=== PATIENT | male | born 2000 | race African-American/Black ===

== ENCOUNTER 2022-02-18 08:01 | Emergency (ER) | payer OTHER ==
[~2022-02-18] VITALS: Ht 177.8 cm; Wt 73.0 kg
[2022-02-18 09:33] LABS: BASOPHILS % 0.5 % (0.0-2.0); EOSINOPHILS % 2.7 % (0.0-5.0); HEMATOCRIT. 44.4 % (42.0-52.0); HEMOGLOBIN. 13.7 g/dL (14.0-18.0); LYMPHOCYTES % 23.2 % (20.0-50.0); MEAN CORPUSCULAR HEMOGLOBIN 23.2 pg (28.0-32.0); MEAN CORPUSCULAR VOLUME 75.1 fL (80.0-94.0); MEAN PLATELET VOLUME 8.4 fl (7.4-10.4); MONOCYTES % 6.9 % (2.0-8.0); NEUTROPHILS % 66.7 % (40.0-76.0); PLATELET 164 x1000/uL (130-400); RED BLOOD CELL COUNT 5.92 mill/uL (4.7-6.1); RED CELL DISTRIBUTION WIDTH 14.6 % (11.6-14.6)
[2022-02-18 09:46] LABS: CHLORIDE 111 mEq/L (98-107)
[2022-02-18 09:47] LABS: CLARITY URINE CLEAR (CLEAR); COLOR URINE YELLOW (YELLOW); KETONES URINE NEGATIVE (NEGATIVE); LEUKOCYTE ESTERASE URINE NEGATIVE (NEGATIVE); NITRITE URINE NEGATIVE (NEGATIVE); OCCULT BLOOD URINE NEGATIVE (NEGATIVE); PH URINE 7.5 (4.5-8.0); PROTEIN URINE NEGATIVE (NEGATIVE); SPECIFIC GRAVITY URINE 1.016 (1.005-1.030); UROBILINOGEN URINE 0.2 E.U./dL (0.2-1.0)
[2022-02-18 09:48] LABS: ETHANOL BLOOD < 10 mg/dL
[2022-02-18 10:00] LABS: METHADONE URINE SCREEN NEGATIVE (NEGATIVE)
[2022-02-18 10:01] LABS: *AMPHETAMINES SCREEN URINE NEGATIVE (NEGATIVE); *BARBITURATES SCREEN URINE NEGATIVE (NEGATIVE); *BENZODIAZEPINES SCREEN URINE NEGATIVE (NEGATIVE); *COCAINE SCREEN URINE NEGATIVE (NEGATIVE); CANNABINOID URINE SCREEN PRESUMTIVE POSITIVE (NEGATIVE); OPIATES URINE SCREEN NEGATIVE (NEGATIVE); PHENCYCLIDINE URINE SCREEN NEGATIVE (NEGATIVE)
[2022-02-18] MEDS ORDERED: LEVETIRACETAM 1000MG PREMIX 100 ML IV NR (10:44)
[2022-02-18] MEDS ORDERED: LORAZEPAM 2MG/ML CPJ IV NR (10:45)
[2022-02-18] MEDS ORDERED: LEVETIRACETAM 1000MG PREMIX 100 ML IV ONE (10:45)
[2022-02-18] MEDS ORDERED: LORAZEPAM 2MG/ML CPJ IV ONE (10:45)
[2022-02-18 13:35] VITALS: BP 113/44
== END 2022-02-18 15:02 | disposition short-term general hospital (02) ==
LOC: ER 08:01
DX: G40.909 Epilepsy, unspecified, not intractable, without status epilepticus (principal); J45.909 Unspecified asthma, uncomplicated; F12.10 Cannabis abuse, uncomplicated
CPT/HCPCS: 36415; 70450; 71045; 80053; 80305; 80320; 81003; 82962; 85025; 93005; 96365; 96375; 99285; J1953; J2060; G0480

== ENCOUNTER 2022-02-24 10:07 | Emergency (ER) | payer OTHER ==
[~2022-02-24] VITALS: Ht 175.3 cm; Wt 68.0 kg
[2022-02-24] MEDS ORDERED: LEVETIRACETAM 1000MG PREMIX 100 ML IV ONE (11:00)
[2022-02-24 11:29] LABS: BASOPHILS % 0.4 % (0.0-2.0); EOSINOPHILS % 0.5 % (0.0-5.0); HEMATOCRIT. 45.6 % (42.0-52.0); HEMOGLOBIN. 14.3 g/dL (14.0-18.0); MEAN CORPUSCULAR VOLUME 73.2 fL (80.0-94.0); MEAN PLATELET VOLUME 8.4 fl (7.4-10.4); NEUTROPHILS % 81.1 % (40.0-76.0); PLATELET 207 x1000/uL (130-400); RED BLOOD CELL COUNT 6.23 mill/uL (4.7-6.1); RED CELL DISTRIBUTION WIDTH 14.9 % (11.6-14.6)
[2022-02-24 11:41] LABS: CHLORIDE 107 mEq/L (98-107)
[2022-02-24 11:52] LABS: ETHANOL BLOOD < 10 mg/dL
[2022-02-24 13:46] LABS: CLARITY URINE CLEAR (CLEAR); COLOR URINE YELLOW (YELLOW); KETONES URINE NEGATIVE (NEGATIVE); LEUKOCYTE ESTERASE URINE NEGATIVE (NEGATIVE); NITRITE URINE NEGATIVE (NEGATIVE); OCCULT BLOOD URINE 1+ (NEGATIVE); PH URINE 5.5 (4.5-8.0); PROTEIN URINE TRACE (NEGATIVE); SPECIFIC GRAVITY URINE 1.014 (1.005-1.030); UROBILINOGEN URINE 0.2 E.U./dL (0.2-1.0)
[2022-02-24] MEDS ORDERED: KEPP500 MT (13:52)
[2022-02-24 14:00] LABS: *AMPHETAMINES SCREEN URINE NEGATIVE (NEGATIVE); *BARBITURATES SCREEN URINE NEGATIVE (NEGATIVE); *BENZODIAZEPINES SCREEN URINE NEGATIVE (NEGATIVE); *COCAINE SCREEN URINE NEGATIVE (NEGATIVE); CANNABINOID URINE SCREEN PRESUMTIVE POSITIVE (NEGATIVE); METHADONE URINE SCREEN NEGATIVE (NEGATIVE); OPIATES URINE SCREEN NEGATIVE (NEGATIVE); PHENCYCLIDINE URINE SCREEN NEGATIVE (NEGATIVE)
[2022-02-24] MEDS ORDERED: ACETAMINOPHEN 325MG TABLET PO ONE (14:30)
[2022-02-24 15:20] VITALS: BP 128/75
== END 2022-02-24 15:29 | disposition home or self-care (01) ==
LOC: ER 10:23
DX: R56.9 Unspecified convulsions (principal); F12.10 Cannabis abuse, uncomplicated
CPT/HCPCS: 36415; 70450; 80053; 80305; 80320; 81003; 85025; 93005; 96365; 99285; J1953; G0480